=== PATIENT | male | born 2000 | race Caucasian/White ===

== ENCOUNTER 2024-09-10 16:45 | Emergency (ER) | payer SELFPAY ==
[2024-09-10 16:46] VITALS: BP 153/68; PULSE 80; RESP 18; TEMP 37.3; O2SAT 100; BMI 25.0
[2024-09-10 16:52] VITALS: BP 153/68; PULSE 80; RESP 18; TEMP 37.3; O2SAT 100
--- NOTE | 2024-09-10 16:53 | CT_ITS ---
PROCEDURE: ABDOMEN/PELVIS W IV CONT ONLY REASON FOR EXAM: Right and left lower quadrant pain TECHNIQUE: Abdomen and pelvis CT with intravenous contrast. Multiplanar reconstructions performed COMPARISON: None. FINDINGS: Lower chest: Band of pleural-based consolidation in the medial aspect of the right lower lobe Liver: Unremarkable. Biliary/gallbladder: Unremarkable. Pancreas: Unremarkable. Spleen: Unremarkable. Adrenal glands: Unremarkable. Kidneys: Unremarkable. Gastrointestinal/peritoneum: No acute abnormality.The appendix is unremarkable.No free air or free fluid. Vascular: Unremarkable. Lymph nodes: No enlarged lymph nodes by CT size criteria. Pelvic organs: Unremarkable. Bladder: There is mild diffuse bladder wall thickening with perivesicular fat stranding. A small focus of gas is also present in the urinary bladder. Bones: Fractures are present of the left iliac wing, left acetabulum including the anterior and posterior columns, the left parasymphyseal region and the left inferior ramus. There has been previous ORIF of the left iliac wing with plates and screws. There is a fracture of the left 12th rib. Soft tissues: There is a fluid and gas collection along the inner superior aspect of the left iliac wing measuring approximately 8.1 x 2.7 cm. Visualization is limited due to streak artifact from orthopedic hardware. Hazy fat stranding and some subcutaneous gas extends into the left anterior abdominal wall. Subcutaneous edema is present about the left hip as well as surgical drake from recent postoperative change.. CT/Abdomen/Pelvis W IV Cont ONLY IMPRESSION: 1. Traumatic injuries including a comminuted left acetabular fracture involving the anterior and posterior columns, left iliac wing fracture, and left superior and inferior pubic ramus fractures. There is also a fracture of the left posterior 12th rib. ORIF has been performed of the left iliac wing, but not the acetabulum. Orthop edic evaluation is recommended. 2. Fluid collection with a tiny focus of gas along the inferior margin of the s uperior aspect of the left iliac wing, which may be due to healing postoperative changes, hematoma or abscess. Evaluation is li mited due to the presence of streak artifact from orthopedic hardware. 3. Diffuse bladder wall thickening with perivesicular fat stranding and gas in the bladder lumen, possibly due to cystitis. In the setting of trauma, this may be due to contusion. 4. Subcutaneous edema present at the left hip with surgical drake present. 5. Pleural-based band of consolidation in the medial aspect of the right lower lobe, with an appearance suggestive of atelectasis/scarring. Reading Location: [facility]
[2024-09-10] MEDS: Ondansetron 4 MG/2 ML Vial IV (17:10)
--- NOTE | 2024-09-10 17:23 | EDS_ITS ---
HPI History of Present Illness Chief Complaint: Fall Detail of Chief Complaint: Patient presents because of lower abdominal pain radiating to his scrotum Informant: patient Onset/Context/Timing Onset: Yesterday Context: Sudden Onset Timing: Continuous and Waxes and wanes Quality: Pain Location: Right lower quadrant/suprapubic and left lower quadrant Current Severity: Mild Maximum Severity: Moderate Worsened by: Palpation Relieved by: Nothing Associated Symptoms Associated Symptoms: Nausea and dysuria Narrative Narrative: Patient is a 24-year-old male. Patient had a fall with injury to his wrist and pelvis. He was admitted to trauma service at [facility]. There is no records of him being here. He presents because of predominately left-sided lower quadrant abdominal pain with pain radiating down to both right and left testicle/scrotum. Patient does endorse dysuria. He denies hematuria or frequency. He does endorse nausea with decreased appetite. He denies fever or chills. Patient was discharged from [facility] yesterday. There is no history of renal ureterolithiasis. Mother states he had 2 oxycodone tablets at 1302 acetaminophen tablets at 1400. They had little improvement with respect to the pain. Prior similar symptoms: No Recent Illness/Hospitalization: Yes PFSH PFSH Medical History no medical history no medical history Allergy/AdvReac Type Severity Reaction Status Date / Time No Known Allergies Allergy Verified 09/10/24 18:20 Family History no significant family his Surgical History H/O wrist surgery Hx of pelvic surgery Surgical History no surgical history Social History Smoking Status: Former smoker ROS ROS ED Constitutional Constitutional ED: Denies chills, fever(s), subjective or sweats Cardiovascular Cardiovascular: Denies chest pain or palpitations Respiratory/Chest Respiratory/Chest: Denies cough, dyspnea or dyspnea on exertion Gastrointestinal Gastrointestinal: Reports abdominal pain, nausea and other Details: Decreased appetite. ; Denies constipation, diarrhea, melena or vomiting Genitourinary Genitourinary ED: Reports dysuria; Denies hematuria or urinary frequency Musculoskeletal Musculoskeletal: Denies arthralgias, back pain or myalgias Neurologic Neurologic: Denies headache(s) Psychiatric Psychiatric: Denies anxiety or depression Endocrine Endocrinology: Denies cold intolerance or heat intolerance Hematologic/Lymphatic Hematologic/Lymphatic: Denies systems reviewed and no addt'l complaints, except as documented EXAM Physical Exam Const Vital Signs: 09/10/24 16:46 09/10/24 16:52 09/10/24 17:52 Temperature 99.2 F H 99.2 F H 99.2 F H Temperature Source Oral Oral Oral Pulse Rate 80 80 77 Respiratory Rate 18 18 16 Blood Pressure 153/68 H 153/68 H 129/47 H Blood Pressure Mean 96 96 74 Pulse Ox 100 100 97 Oxygen Delivery Method Room Air Room Air Room Air 09/10/24 18:00 09/10/24 19:00 09/10/24 20:00 Temperature 99.2 F H 99.2 F H 97.5 F L Temperature Source Oral Oral Temporal Pulse Rate 77 77 80 Respiratory Rate 16 16 16 Blood Pressure 129/47 H 136/68 H 124/68 H Blood Pressure Mean 74 90 86 Pulse Ox 97 100 99 Oxygen Delivery Method Room Air Room Air 09/10/24 20:00 09/10/24 20:00 Temperature 97.5 F L Temperature Source Pulse Rate 80 80 Respiratory Rate 16 16 Blood Pressure 124/68 H 124/68 H Blood Pressure Mean 86 86 Pulse Ox 99 100 Oxygen Delivery Method Positive well nourished and well developed General Appearance ED: well developed; Negative for cyanotic, diaphoretic or NAD HEENT Reports dry mucous membranes HEENT Narrative: Head is atraumatic normocephalic. Ears normal. Nares patent. Mouth ED: Yes dry mucous membranes Mouth: dry mucous membranes Eyes PERRL and EOMs intact bilaterally General Eye ED: Negative for pale conjunctiva or scleral icterus Neck no lymphadenopathy, supple and no JVD Chest Wall inspection of chest normal and palpation of chest normal Resp normal respiratory effort and clear to auscultation bilaterally Cardio regular rate, regular rhythm, S1 normal heart sound, S2 normal heart sound and no murmurs GI non-distended and no masses; Negative for normal to inspection, nondistended, normoactive bowel sounds, non-tender or hepatosplenomegaly GI Narrative: Tenderness right of the suprapubic region, suprapubic region and left lower quadrant. There is no tenderness in the proximity McBurney's point. Patient's dressings are dry. Patient states he had pelvic surgery. He is also in a thumb spica splint. Bowel sounds are diminished. Question of slight tympany to percussion. Auscultation: hypoactive bowel sounds Palpation: soft Extremity normal to inspection General Extremety ED: Negative for edema or tenderness General Extremity: Negative for edema Neuro oriented x3 and CN's II-XII intact bilaterally Sensorium / Orientation: alert Skin no rashes or lesions noted, no wounds and skin turgor normal MDM MDM MDM Narrative Medical decision making narrative: Differential diagnosis would include urologic pathology i.e. kidney stone, prostatitis, with bilateral pain doubt torsion. This could be related to the trauma since he had pelvic fractures. Baseline blood work was obtained to assess H&H, white count, renal function and CT of the abdomen because the amount of tenderness he is having. History & Record Review Additional record(s) reviewed:: No prior records Lab Data Attestation: I reviewed the patient's lab results. Lab results narrative: CBC reveals mild anemia probably due to blood loss from recent surgery. Competence of metabolic panel is unremarkable. Urinalysis is negative. Labs: Laboratory Results - last 24 hr 09/10/24 09/10/24 17:05 18:10 WBC 10.7 RBC 3.36 L Hgb 9.8 L Hct 29.1 L MCV 86.6 MCH 29.2 MCHC 33.7 RDW Std Deviation 38.8 RDW Coeff of Eduardo 12.4 Plt Count 311 MPV 10.2 Immature Gran % (Auto) 0.500 Neut % (Auto) 67.1 Lymph % (Auto) 19.1 Sac % (Auto) 12.0 H Eos % (Auto) 0.7 Baso % (Auto) 0.6 Absolute Neuts (auto) 7.2 Absolute Lymphs (auto) 2.04 Nucleated RBC % 0 Sodium 136 Potassium 3.8 Chloride 103 Carbon Dioxide 27.0 Anion Gap 7 BUN 11 Creatinine 0.81 Estim Creat Clear Calc 155.68 Est GFR (MDRD) Af Amer 151 Est GFR (MDRD) Non-Af 125 BUN/Creatinine Ratio 13.5 Glucose 94 Lactic Acid 1.4 Calcium 9.1 Urine Color Yellow Urine Clarity Clear Urine pH 6.5 Ur Specific [place] 1.010 Urine Protein 15 H Urine Glucose (UA) Normal Urine Ketones Negative Urine Occult Blood Negative Urine Nitrite Negative Urine Bilirubin Negative Urine Urobilinogen Normal Ur Leukocyte Esterase Negative Urine RBC 0-5 SEEN Urine WBC 0-5 SEEN Ur Squamous Epith Cells 0 SEEN Urine Bacteria 0 SEEN Urine Mucus 0 SEEN Radiography Diagnostic Testing: Clinical Impression(s) from Imaging Studies Abdomen/Pelvis CT 09/10/24 16:53 IMPRESSION: 1. Traumatic injuries including a comminuted left acetabular fracture involving the anterior and posterior columns, left iliac wing fracture, and left superior and inferior pubic ramus fractures. There is also a fracture of the left posterior 12th rib. ORIF has been performed of the left iliac wing, but not the acetabulum. Orthopedic evaluation is recommended. 2. Fluid collection with a tiny focus of gas along the inferior margin of the superior aspect of the left iliac wing, which may be due to healing postoperative changes, hematoma or abscess. Evaluation is limited due to the presence of streak artifact from orthopedic hardware. 3. Diffuse bladder wall thickening with perivesicular fat stranding and gas in the bladder lumen, possibly due to cystitis. In the setting of trauma, this may be due to contusion. 4. Subcutaneous edema present at the left hip with surgical drake present. 5. Pleural-based band of consolidation in the medial aspect of the right lower lobe, with an appearance suggestive of atelectasis/scarring. Reading Location: [facility] CT of the abdomen pelvis was reviewed by me. There is no evidence of injury to the liver, spleen or kidneys that I appreciate. There is evidence of a pelvic fracture and specifically acetabular fracture on the left. There is also fracture involving the iliac wing and pubic ramus. These are all on the left side. These are all old injuries. The latter finding is of concern since he has urinary symptoms. Awaiting urinalysis results. Treatment and Re-Evaluation :: Patient and family were informed of results. Patient received additional dose of morphine. He was discharged to home. Of note patient did have a Ware which was removed on Thursday. Discharge Plan Triage Chief Complaint: Fall ED Provider: Christian Pandya Dx/Rx/DC Orders Clinical Impression: Dysuria, Multiple pelvic fractures, Abdominal pain, acute, left lower quadrant, Post-operative pain Instructions: ED Dysuria, Uncertain Cause (Adult) Primary Care Provider: Care Physician,No Primary Referrals: Care Physician,No Primary [Primary Care Provider] - Activity Restrictions/Additional Instructions: Apply ice 6-10 times a day to your left pelvic area. Print Language: Hungarian Disposition Disposition: Home, Self Care Discharge Date/Time: 09/10/24 20:25
[2024-09-10 17:32] LABS: Absolute Lymphocyte Count 2.04 X10^3/uL (0.83-4.51); Absolute Neutrophil Count 7.2 X10^3/uL (2.0-7.7); Basophil# 0.06 X10^3/uL; Basophil% 0.6 % (0-1); Eosinophil# 0.07 X10^3/uL; Eosinophils% 0.7 % (0-5); Hematocrit 29.1 % (40-54); Hemoglobin 9.8 g/dL (13.0-16.5); Lymphocyte # 2.04 X10^3/ul (0.83-4.51); Lymphocyte % 19.1 % (19-41); Mean Corp Hgb Conc 33.7 g/dL (32-36); Mean Corpuscular Hgb 29.2 pg (27.0-32.0); Mean Corpuscular Volume 86.6 fL (80-94); Mean Platelet Vol. 10.2 fl (6.2-12.0); Monocyte# 1.28 X10^3/uL; NRBC Flagged by Analyzer 0 % (0-5); Neutrophil # 7.17 X10^3/uL (2.7-7.7); Neutrophil % 67.1 % (47-70); Platelet Count 311 K/mm3 (150-450); RBC Distribution Width CV 12.4 % (11.6-14.6); RBC Distribution Width SD 38.8 fl (35.1-43.9); Red Blood Count 3.36 M/mm3 (4.6-6.2); White Blood Count 10.7 K/mm3 (4.4-11.0)
[2024-09-10] MEDS: Morphine 4 MG/ML Syringe IV ×2 (17:34→20:22)
[2024-09-10 17:42] LABS: Anion Gap 7 (5-15); BUN 11 mg/dL (7-18); BUN/Creat Ratio 13.5 RATIO (10-20); Calcium,Total 9.1 mg/dL (8.5-10.1); Chloride 103 mmol/L (98-107); Creatinine, Serum 0.81 mg/dL (0.70-1.30); EST Glomerular Filtration Rate 125 mL/min (>60); Est Glom Filt Rate - Afr Amer 151 mL/min (>60); Estimated Creatinine Clearance 155.68 ml/min; Glucose 94 mg/dL (74-106); Potassium 3.8 mmol/L (3.5-5.1); Sodium Level 136 mmol/L (136-145)
[2024-09-10 17:45] LABS: Lactic Acid 1.4 mmol/L (0.4-1.9)
[2024-09-10 17:52] VITALS: BP 129/47; PULSE 77; RESP 16; TEMP 37.3; O2SAT 97
[2024-09-10 18:00] VITALS: BP 129/47; PULSE 77; RESP 16; TEMP 37.3; O2SAT 97
[2024-09-10 18:13] LABS: Bacteria 0 SEEN /hpf (None Seen); Mucous, Urine 0 SEEN /hpf (<or=2+); Squamous Epithelial Cells - UA 0 SEEN /hpf (0-5)
[2024-09-10 18:25] LABS: Color, Urine Yellow (Yellow); Glucose, Dipstick Normal (Normal); Ketone-Dipstick Negative (Negative); Leukocyte Esterase-Dipstick Negative /ul (Negative); Nitrite-Dipstick Negative (Negative); Occult Blood-Urine Negative /ul (Negative); Protein-Dipstick 15 mg/dl (Negative); Urine Bilirubin Dipstick Negative (Negative); Urine Clarity Clear (Clear); Urine Urobilinogen Normal (Normal); Urine pH 6.5 (5.0 - 8.0)
[2024-09-10 18:40] LABS: Red Blood Cells-Urine 0-5 SEEN /hpf (0-5); White Blood Cells 0-5 SEEN /hpf (0-5)
[2024-09-10 19:00] VITALS: BP 136/68; PULSE 77; RESP 16; TEMP 37.3; O2SAT 100
[2024-09-10 20:00] VITALS: BP 124/68; PULSE 80; RESP 16; TEMP 36.4; O2SAT 100; O2SAT 99
== END 2024-09-10 20:25 | disposition home or self-care (01) ==
PROVIDERS: Emergency Provider Emergency Medicine; Visit Provider Emergency Medicine
DX: S32.82XA Multiple fractures of pelvis without disruption of pelvic ring, initial encounter for closed fracture (principal); Z87.891 Personal history of nicotine dependence; R30.0 Dysuria; R10.32 Left lower quadrant pain; G89.18 Other acute postprocedural pain; W19.XXXA Unspecified fall, initial encounter
CPT/HCPCS: 74177; 80048; 81001; 83605; 85025; 96374; 96375; 96376; 99285; Q9967; A4216; J2405